=== PATIENT | male | born 1935 | race Caucasian/White ===

== ENCOUNTER → 2016-09-21 | Outpatient (REF) | payer MEDICARE ==
[~2016-09-21] MED LIST: /PANT40TA PO; /RANI15TA PO; ACET-654 PO; ALTA10CA3 PO; AMOX500T PO; ASPI325T5 PO; ATOR1TAB21 PO; BISAC5TA PO; CARV3.12 PO; CENTTAB47 PO; CEPH500T PO; COLA50CA3 PO; DULC10SU9 PR; ERYTHROMYCIN OINT OU; LASI40TA PO; LIPI20TA PO; LOPR50TA PO; MOM30SS PO; PRAV40TA PO; TRAZ50TA2 PO; TRAZO50TA PO; TYLE325T5 PO; ZANT150T PO; coreg PO
[2016-09-21 11:02] LABS: ALBUMIN 3.5 GM/DL (3.2-5.2); ALBUMIN/GLOBULIN RATIO 0.88 (1.00-1.93); BILIRUBIN,TOTAL 0.8 MG/DL (0.2-1.0); CALCIUM LEVEL 10.5 MG/DL (8.8-10.2); CREATININE FOR GFR 1.89 MG/DL (0.70-1.30); GLOMERULAR FILTRATION RATE 36.5 (>35); POTASSIUM SERUM 4.8 MEQ/L (3.5-5.1); TOTAL PROTEIN 7.5 GM/DL (6.4-8.2)
[2016-09-21 11:03] LABS: MEAN CORPUSCULAR HGB CONC 30.5 g/dl (32.0-36.5); MEAN CORPUSCULAR VOLUME 85.2 fl (80.0-96.0); RED CELL DISTRIBUTION WIDTH 16.5 % (11.5-14.5); WHITE BLOOD COUNT 6.1 K/mm3 (4.0-10.0)
== END | disposition home or self-care (01) ==
LOC: M SFHCPLAZ 08:16
PROVIDERS: ATTEND Physician Assistant
DX: N18.3 Chronic kidney disease, stage 3 (moderate) (principal); E78.2 Mixed hyperlipidemia; E55.9 Vitamin D deficiency, unspecified

== ENCOUNTER 2016-12-23 11:07 | Emergency (ER) | payer MEDICARE ==
[~2016-12-23] VITALS: Ht 175.3 cm; Wt 68.0 kg
[2016-12-23] MEDS ORDERED: PROA1AER (11:21)
[2016-12-23] MEDS ORDERED: SYMB16INH (11:21)
[2016-12-23] MEDS ORDERED: ALLO100T PO (11:21)
[2016-12-23] MEDS ORDERED: LISI10TA4 PO (11:21)
[2016-12-23] MEDS ORDERED: XARE15TA PO (11:21)
[2016-12-23] MEDS ORDERED: IPRATROPIUM 0.5MG/ALBUTEROL 2.5MG INH SOL UD 3ML (DUONEB)(J7620) NEB PRN (12:30)
[2016-12-23 13:03] LABS: VENOUS BASE EXCESS -2.6 (-2.0-2.0); VENOUS PARTIAL PRESSURE O2 29.8 mmHg (30.0-50.0); VENOUS STANDARD HCO3 21.2 MEQ/L; VENOUS TOTAL CO2 24.1 MEQ/L (24.0-28.0)
[2016-12-23 13:12] LABS: INR 2.39
[2016-12-23 13:20] LABS: MEAN CORPUSCULAR HEMOGLOBIN 26.7 pg (27.0-33.0); MEAN CORPUSCULAR HGB CONC 31.4 g/dl (32.0-36.5); MEAN CORPUSCULAR VOLUME 85.1 fl (80.0-96.0); PLATELET COUNT, AUTOMATED 215 k/mm3 (150-450); RED CELL DISTRIBUTION WIDTH 16.6 % (11.5-14.5); WHITE BLOOD COUNT 6.4 K/mm3 (4.0-10.0)
[2016-12-23 13:31] LABS: ALBUMIN 3.2 GM/DL (3.2-5.2); ALBUMIN/GLOBULIN RATIO 0.8 (1.00-1.93); BILIRUBIN,DIRECT 0.2 MG/DL (0.0-0.2); BILIRUBIN,TOTAL 0.8 MG/DL (0.2-1.0); CALCIUM LEVEL 9.9 MG/DL (8.8-10.2); CREATININE FOR GFR 2.15 MG/DL (0.70-1.30); GLOMERULAR FILTRATION RATE 31.5 (>35); POTASSIUM SERUM 4.4 MEQ/L (3.5-5.1); TOTAL PROTEIN 7.2 GM/DL (6.4-8.2)
[2016-12-23] MEDS ORDERED: ISOVUE-370 76% 100ML VIAL (Q9967) As Ordered ONE (13:35)
[2016-12-23 13:38] LABS: EOSINOPHILS 2 % (0-5)
[2016-12-23 13:39] LABS: ANISOCYTOSIS 1+
--- NOTE | 2016-12-23 14:30 | REP ---
REASON FOR EXAM: Followup pleural effusions. All prior chest CTs were reviewed, the latest of which is dated 05/27/2016. The lack of intravenous contrast decreases the sensitivity of the exam. There is no significant change of the appearance of the mediastinal of pulmonary syed. Multiple nonenlarged lymph nodes are present. There are bilateral pleural effusions which appear completely stable from the latest prior 05/27/2016. The imaged upper abdomen and imaged osseous structures are also unchanged. Evaluation of the lung field again shows scattered patchy and asymmetric parenchymal opacities. There is an unchanged spiculated 1.4 cm sized right upper lobe nodule. Other scattered millimeter sized nodules are noted status quo. Emphysematous changes are again seen with small parenchymal bullae and pleural blebs. There is evidence of unchanged biapical pleuroparenchymal scarring. IMPRESSION: 1. Bilateral pleural effusions as described above. 2. Stable mediastinum and pulmonary syed. 3. Abnormal lung field findings as described above. The spiculated right upper lobe nodule is suspicious for carcinoma. The left lung base pleural based nodule may also be secondary to carcinoma it too is stable since the latest prior. Consider PET/CT for further evaluation. Signed by Miguel Tinoco DO 12/23/2016 03:08 P
[2016-12-23] MEDS ORDERED: AVEL1TAB PO (15:44)
[2016-12-23 16:10] VITALS: BP 121/77
--- NOTE | 2016-12-24 08:45 | ECGEPIP ---
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
== END 2016-12-23 16:12 | disposition home or self-care (01) ==
LOC: M ED 13:40
DX: J44.1 Chronic obstructive pulmonary disease with (acute) exacerbation (principal); R09.89 Other specified symptoms and signs involving the circulatory and respiratory systems; C34.90 Malignant neoplasm of unspecified part of unspecified bronchus or lung; J90 Pleural effusion, not elsewhere classified; Z91.81 History of falling; R07.9 Chest pain, unspecified; I10 Essential (primary) hypertension; E78.5 Hyperlipidemia, unspecified; I51.9 Heart disease, unspecified; N40.0 Benign prostatic hyperplasia without lower urinary tract symptoms; Z87.891 Personal history of nicotine dependence; Z95.1 Presence of aortocoronary bypass graft; Z88.8 Allergy status to other drugs, medicaments and biological substances; Z79.899 Other long term (current) drug therapy; Z79.82 Long term (current) use of aspirin; Z79.2 Long term (current) use of antibiotics; Z79.01 Long term (current) use of anticoagulants; Z79.51 Long term (current) use of inhaled steroids